=== PATIENT | female | born 1950 | race Caucasian/White ===

== ENCOUNTER 2019-04-18 13:30 | Inpatient (IN) | payer MEDICARE ==
[~2019-04-18] VITALS: Ht 172.7 cm; Wt 100.6 kg
[~2019-04-18 13:30] MED LIST: ACET500 PO; ALPR1 PO; ANASTROZOLE MT; ASCO500 PO; ATOR80 PO; BENADRYL25 MG PO; CALCAVITD PO; CALCIUM PO; CETI5 MT; CHOL10002 PO; CRANBERRY250 MG PO; CYAN500 PO; ENOX40I SC; FISH1000 PO; Flomax0.4 MG PO; Hair, Skin & N1 EACH PO; IBUP400 PO; Inderal60 MG PO; LETR2.5 PO; MELO7.5 MT; MELO7.5 PO; MULVITMIND PO; OXYACE5T PO; PRIM250 PO; PRIM50 MT; PROP80ER MT; Percocet 5-3251 EACH PO; RANI150 MT; RANI150 PO; TOCO1000 PO; Zantac150 MG PO; Zofran Odt4 MG SL
--- NOTE | 2019-05-02 07:13 | NUR ---
History, Chart, Medications and Allergies reviewed before start of procedure. Lungs clear T/O to Auscultation. Patient confirms NPO status and agrees with scheduled surgery. Pre-Op teaching done. Pt verbalizes understanding. Patient reports completing Chlorhexadine shower X2 prior to admission to hospital.
--- NOTE | 2019-05-02 19:39 | NUR ---
SHIFT SUMMARY PT HAS DONE WELL POST OP. WAS DROWSY INITIALLY BUT WORKED VERY WELL WITH BOTH PT/OT. DENIES PAIN BESIDES AN ACHE. VOIDING, EATING AND DRINKING WELL.
[2019-05-03 04:12] LABS: BASOPHILS ABSOLUTE AUTO 0.04 K/mm3 (0.00-0.23); BASOPHILS PERCENT AUTO 0 % (0-2); EOSINOPHILS ABSOLUTE AUTO 0.09 K/mm3 (0.00-0.68); EOSINOPHILS PERCENT AUTO 1 % (0-6); Hematocrit 34.1 % (33.0-51.0); IMMATURE GRAN ABSOLUTE AUTO 0.04 K/mm3 (0.00-0.10); IMMATURE GRAN PERCENT AUTO 0 % (0-1); LYMPHOCYTES PERCENT AUTO 18 % (21-46); MONOCYTES ABSOLUTE AUTO 0.61 K/mm3 (0.16-1.47); MONOCYTES PERCENT AUTO 7 % (4-13); Mean Corpuscular HGB 31.2 pg (26.0-34.0); Mean Corpuscular HGB Conc 32.3 g/dL (31.5-36.5); Mean Corpuscular Volume 97 fL (80-100); NEUTROPHILS ABSOLUTE AUTO 6.63 K/mm3 (1.96-9.15); NEUTROPHILS PERCENT AUTO 74 % (41-73); Platelet Count 147 K/mm3 (150-400); RDW Coefficient Variation 13.2 % (11.7-14.2); RDW Standard Deviation 46.8 fL (35.1-46.3); Red Blood Cell Count 3.53 M/mm3 (3.80-5.20); White Blood Cell Count 9.01 K/mm3 (4.00-11.30)
[2019-05-03 04:28] LABS: Anion Gap 4 mmol/L (6-16); Blood Urea Nitrogen 12 mg/dL (8-24); Bun/Creatinine Ratio 15.6 (12.0-20.0); CO2, Blood 28 mmol/L (21-32); Calcium, Blood 8.5 mg/dL (8.5-10.1); Chloride, Blood 107 mmol/L (98-108); Creatinine, Blood 0.77 mg/dL (0.40-1.00); Glomerular Filtration Rate >60 (60-); Glucose, Blood 112 mg/dL (70-99); Magnesium, Blood 1.9 mg/dL (1.6-2.4); Potassium, Blood 4.1 mmol/L (3.5-5.5); Sodium, Blood 139 mmol/L (136-145)
--- NOTE | 2019-05-03 07:13 | NUR ---
POD 1 SP R [place]. PT VSS T/O NIGHT; DRESSINGS CDI. PT REP PAIN MINIMAL, MGD W/SCHEDULED TYLENOL AND TORADOL. PT DID REQ 1 OXYCODONE THIS AM. PT UP OOB W/FWW+SBA, JAIME WELL. PT JAIME REG PO IS VOIDING URINE W/O DIFFICULTY. REP GIVEN TO DAY RN.
[2019-05-03] MEDS ORDERED: ASPI325EC PO (12:37)
[2019-05-03] MEDS ORDERED: OXYC5 PO (12:38)
--- NOTE | 2019-05-03 14:23 | NUR ---
DISCHARGE PT HAS CLEARED THERAPY, PAIN WELL CONTROLLED, EATING, DRINKING, AND VOIDING WELL. SCRIPT GIVEN, DRSGS GIVEN.
== END 2019-05-03 14:27 | disposition home or self-care (01) | DRG 470 ==
LOC: SURS 05-02 06:04 → PRE IP 05-02 07:30 → SURS 05-02 11:12
PROVIDERS: ADMIT Orthopaedic Surgery
PROC: 0SR904A Replacement of Right Hip Joint with Ceramic on Polyethylene Synthetic Substitute, Uncemented, Open Approach (ICD-10-PCS; principal; 2019-05-02 07:30)
DX: M16.11 Unilateral primary osteoarthritis, right hip (principal); E78.5 Hyperlipidemia, unspecified; Z87.891 Personal history of nicotine dependence
CPT/HCPCS: 36415; 72170; 80048; 83735; 85025; 88300; 97110; 97116; 97162; 97166; 97530; 97535; C1713; C1776; J0171; J0690; J0735; J1100; J1885; J2250; J2405; J2704; J2710; J2795; J3010; J3370; J7120

== ENCOUNTER 2020-03-30 11:06 | Inpatient (IN) | payer MEDICARE ==
[~2020-03-30] VITALS: Ht 180.3 cm; Wt 102.5 kg
[~2020-03-30 11:06] MED LIST changes: +ASPI325EC PO; -Inderal60 MG PO; +OXYC5 PO; +PROP60 PO; +VITAMIN D31000 UNI1 PO
[2020-03-30 12:00] LABS: Hematocrit 40.2 % (33.0-51.0); Mean Corpuscular HGB 29.7 pg (26.0-34.0); Mean Corpuscular HGB Conc 32.3 g/dL (31.5-36.5); Mean Corpuscular Volume 92 fL (80-100); Mean Platelet Volume 10.4 fL (9.1-12.4); Platelet Count 174 K/mm3 (150-400); RDW Coefficient Variation 13.2 % (11.7-14.2); RDW Standard Deviation 45.1 fL (35.1-46.3); Red Blood Cell Count 4.37 M/mm3 (3.80-5.20); White Blood Cell Count 10.05 K/mm3 (4.00-11.30)
[2020-03-30 12:16] LABS: Alanine Aminotransfer (ALT/SGP 18 U/L (12-78); Albumin, Blood 2.8 g/dL (3.4-5.0); Albumin/Globulin Ratio 0.7 (0.8-1.8); Alk Phos 87 U/L (50-136); Anion Gap 8 mmol/L (6-16); Aspartate Aminotrans (AST/SGOT 19 U/L (12-37); Blood Urea Nitrogen 12 mg/dL (8-24); Bun/Creatinine Ratio 15.6 (12.0-20.0); CO2, Blood 23 mmol/L (21-32); Calcium, Blood 8.6 mg/dL (8.5-10.1); Chloride, Blood 102 mmol/L (98-108); Creatinine, Blood 0.77 mg/dL (0.40-1.00); Globulin, Blood 4.2 g/dL (2.2-4.0); Glomerular Filtration Rate >60 (60-); Glucose, Blood 118 mg/dL (70-99); Potassium, Blood 3.9 mmol/L (3.5-5.5); Sodium, Blood 133 mmol/L (136-145)
[2020-03-30 12:33] LABS: BAND PERCENT MAN 33 % (0-8); BASOPHILS PERCENT MAN 0 % (0-2); EOSINOPHILS PERCENT MAN 0 % (0-6); LYMPHOCYTES PERCENT MAN 15 % (21-46); MONOCYTES PERCENT MAN 15 % (4-13); NEUTROPHILS ABSOLUTE MAN 7.03 K/mm3 (1.96-9.15); SEG NEUTROPHILS PERCENT MAN 37 % (41-73); TOTAL CELLS COUNTED 100
[2020-03-30 13:38] LABS: Adenovirus F 40/41 Not Detected (NOT DETECT); Astrovirus Not Detected (NOT DETECT); Campylobacter Sp Not Detected (NOT DETECT); Cryptosporidium Not Detected (NOT DETECT); Cyclospora Cayetanensis Not Detected (NOT DETECT); E. Coli O157 Not Detected (NOT DETECT); Entamoeba Histolytica Not Detected (NOT DETECT); Enteroaggregative E. coli-EAEC Not Detected (NOT DETECT); Enteropathogenic E. coli-EPEC Not Detected (NOT DETECT); Enterotoxigenic E. coli-ETEC Not Detected (NOT DETECT); Giardia Lamblia Not Detected (NOT DETECT); Norovirus GI/GII Not Detected (NOT DETECT); Plesiomonas Shigelloides Not Detected (NOT DETECT); Rotavirus A Not Detected (NOT DETECT); Salmonella Sp Not Detected (NOT DETECT); Sapovirus Not Detected (NOT DETECT); Shiga Toxin-prod E. coli-STEC Not Detected (NOT DETECT); Shigella/Enteroin E. coli-EIEC Not Detected (NOT DETECT); Vibrio Cholerae Not Detected (NOT DETECT); Vibrio Sp Not Detected (NOT DETECT); Yersinia Enterocolitica Not Detected (NOT DETECT)
[2020-03-30] MEDS ORDERED: OYSTER SHELL 51 EACH PO (14:51)
[2020-03-30] MEDS ORDERED: [UNRECOGNIZED DRUG - OTHER] PO (17:03)
[2020-03-30] MEDS ORDERED: ACET325 PO (17:04)
[2020-03-30] MEDS ORDERED: HAIR, SKIN A66.7 MC1 PO (17:05)
--- NOTE | 2020-03-30 20:20 | NUR ---
SHIFT SUMMARY: PT ARRIVED FROM ED AT 1655. A&O X 4, PLEASANT AND COOPERATIVE.C/O MILD ABD DISCOMFORT. LBM TODAY, HAVING INTERMITTENT BOWEL INCONTINENCE, WHICH IS NOT NORMAL FOR HER. SKIN INTACT. EDUCATED ABOUT CALL LIGHT, UNIT ROUTINE, AND CONTACT PRECAUTIONS; VERBALIZED UNDERSTANDING. PLAN IS PO VANOMYCIN UNTIL DIARRHEA RESOLVES.
[2020-03-31 04:52] LABS: Hematocrit 36.9 % (33.0-51.0); Hemoglobin 11.8 g/dL (11.5-16.0); Mean Corpuscular Volume 94 fL (80-100); Mean Platelet Volume 10.2 fL (9.1-12.4); Platelet Count 149 K/mm3 (150-400); RDW Coefficient Variation 13.4 % (11.7-14.2); RDW Standard Deviation 46.2 fL (35.1-46.3); Red Blood Cell Count 3.93 M/mm3 (3.80-5.20); White Blood Cell Count 8.33 K/mm3 (4.00-11.30)
[2020-03-31 05:11] LABS: Alanine Aminotransfer (ALT/SGP 16 U/L (12-78); Albumin, Blood 2.3 g/dL (3.4-5.0); Albumin/Globulin Ratio 0.6 (0.8-1.8); Alk Phos 70 U/L (50-136); Anion Gap 4 mmol/L (6-16); Aspartate Aminotrans (AST/SGOT 13 U/L (12-37); Bilirubin, Total 0.8 mg/dL (0.1-1.0); Blood Urea Nitrogen 13 mg/dL (8-24); Bun/Creatinine Ratio 16.3 (12.0-20.0); CO2, Blood 27 mmol/L (21-32); Calcium, Blood 8.2 mg/dL (8.5-10.1); Chloride, Blood 105 mmol/L (98-108); Globulin, Blood 3.7 g/dL (2.2-4.0); Glomerular Filtration Rate >60 (60-); Glucose, Blood 113 mg/dL (70-99); Magnesium, Blood 1.9 mg/dL (1.6-2.4); Potassium, Blood 4.2 mmol/L (3.5-5.5); Sodium, Blood 136 mmol/L (136-145)
--- NOTE | 2020-03-31 05:16 | NUR ---
MATERIALS SPECIALIST SUMMARY PT AAOX4 AND PLEASANT. INDEPENDENT TO BATHROOM. PT HAS HAD MULTIPLE WATERY STOOLS TONIGHT. CONTINUES WITH PO VANCOMYCIN Q6H. PT DID HAVE A LOW GRADE TEMP OF 99.8 ALONG WITH SOME CHILLS AT ONE POINT TONIGHT. GIVEN TYLENOL AND LAST TEMP NOTED TO BE 98 DEGREES. VSS, WILL CONTINUE TO MONITOR.
[2020-03-31 06:48] LABS: BAND PERCENT MAN 32 % (0-8); BASOPHILS PERCENT MAN 0 % (0-2); EOSINOPHILS ABSOLUTE MAN 0.33 K/mm3 (0.00-0.68); EOSINOPHILS PERCENT MAN 4 % (0-6); LYMPHOCYTES ABSOLUTE MAN 0.99 K/mm3 (0.84-5.20); LYMPHOCYTES PERCENT MAN 12 % (21-46); METAMYELOCYTE ABSOLUTE MAN 0.08 K/mm3 (0.00-0.00); METAMYELOCYTE PERCENT MAN 1 % (0-0); MONOCYTES ABSOLUTE MAN 0.58 K/mm3 (0.16-1.47); MONOCYTES PERCENT MAN 7 % (4-13); NEUTROPHILS ABSOLUTE MAN 6.33 K/mm3 (1.96-9.15); SEG NEUTROPHILS PERCENT MAN 44 % (41-73); TOTAL CELLS COUNTED 100
--- NOTE | 2020-03-31 17:40 | NUR ---
SHIFT SUMMARY: PT A&O X4 AND INDEPENDENT IN ROOM. SHE REPORTED 3/10 PAIN IN HER ABD WHICH WAS DESCRIBED CRAMPING AND WAS REPORTED A TOLERABLE LEVEL. SHE IS CONTINENT AND HAS HAD MULTIPLE LOOSE STOOLS TODAY. VSS. NO NAUSEA REPORTED. WILL CONTINUE TO MONITOR PT UNTIL REPORT GIVEN TO NIGHT RN.
--- NOTE | 2020-04-01 05:06 | NUR ---
CLIENT TECHNOLOGIES SPECIALIST SUMMARY PT CONTINUES TO HAVE LOOSE STOOL BUT THE FREQUENCY HAS SLOWED. PT ALSO REPORTS A DECREASE IN ABD CRAMPING AND STATES IT ONLY OCCURS RIGHT AFTER SHE HAS A BM. SHE HAS RESTED THROUGH THE NIGHT. VSS, WILL CONTINUE TO MONITOR.
[2020-04-01 05:43] LABS: Hemoglobin 11.3 g/dL (11.5-16.0); Mean Corpuscular HGB 30.3 pg (26.0-34.0); Mean Corpuscular HGB Conc 32.3 g/dL (31.5-36.5); Mean Corpuscular Volume 94 fL (80-100); Mean Platelet Volume 10.2 fL (9.1-12.4); Platelet Count 167 K/mm3 (150-400); RDW Coefficient Variation 13.5 % (11.7-14.2); RDW Standard Deviation 46.4 fL (35.1-46.3); Red Blood Cell Count 3.73 M/mm3 (3.80-5.20); White Blood Cell Count 5.75 K/mm3 (4.00-11.30)
[2020-04-01 06:38] LABS: BAND PERCENT MAN 19 % (0-8); BASOPHILS PERCENT MAN 0 % (0-2); EOSINOPHILS ABSOLUTE MAN 0.51 K/mm3 (0.00-0.68); EOSINOPHILS PERCENT MAN 9 % (0-6); LYMPHOCYTES ABSOLUTE MAN 1.49 K/mm3 (0.84-5.20); LYMPHOCYTES PERCENT MAN 26 % (21-46); METAMYELOCYTE ABSOLUTE MAN 0.05 K/mm3 (0.00-0.00); METAMYELOCYTE PERCENT MAN 1 % (0-0); MONOCYTES ABSOLUTE MAN 0.63 K/mm3 (0.16-1.47); MONOCYTES PERCENT MAN 11 % (4-13); MYELOCYTE ABSOLUTE MAN 0.05 K/mm3 (0.00-0.00); MYELOCYTE PERCENT MAN 1 % (0-0); NEUTROPHILS ABSOLUTE MAN 2.99 K/mm3 (1.96-9.15); SEG NEUTROPHILS PERCENT MAN 33 % (41-73); TOTAL CELLS COUNTED 100
[2020-04-02 04:45] LABS: BASOPHILS ABSOLUTE AUTO 0.05 K/mm3 (0.00-0.23); BASOPHILS PERCENT AUTO 1 % (0-2); Hemoglobin 11.5 g/dL (11.5-16.0); LYMPHOCYTES ABSOLUTE AUTO 1.66 K/mm3 (0.84-5.20); LYMPHOCYTES PERCENT AUTO 29 % (21-46); MONOCYTES ABSOLUTE AUTO 0.99 K/mm3 (0.16-1.47); MONOCYTES PERCENT AUTO 17 % (4-13); Mean Corpuscular HGB 29.6 pg (26.0-34.0); Mean Corpuscular HGB Conc 31.9 g/dL (31.5-36.5); Mean Corpuscular Volume 93 fL (80-100); Mean Platelet Volume 10.1 fL (9.1-12.4); Platelet Count 187 K/mm3 (150-400); RDW Coefficient Variation 13.6 % (11.7-14.2); RDW Standard Deviation 45.9 fL (35.1-46.3); Red Blood Cell Count 3.88 M/mm3 (3.80-5.20); White Blood Cell Count 5.68 K/mm3 (4.00-11.30)
[2020-04-02 04:50] LABS: EOSINOPHILS ABSOLUTE AUTO 0.35 K/mm3 (0.00-0.68); EOSINOPHILS PERCENT AUTO 6 % (0-6); IMMATURE GRAN ABSOLUTE AUTO 0.14 K/mm3 (0.00-0.10); IMMATURE GRAN PERCENT AUTO 3 % (0-1); NEUTROPHILS ABSOLUTE AUTO 2.49 K/mm3 (1.96-9.15); NEUTROPHILS PERCENT AUTO 44 % (41-73)
[2020-04-02 05:35] LABS: BAND PERCENT MAN 13 % (0-8); BASOPHILS ABSOLUTE MAN 0.05 K/mm3 (0.00-0.23); BASOPHILS PERCENT MAN 1 % (0-2); EOSINOPHILS ABSOLUTE MAN 0.34 K/mm3 (0.00-0.68); EOSINOPHILS PERCENT MAN 6 % (0-6); LYMPHOCYTES ABSOLUTE MAN 1.87 K/mm3 (0.84-5.20); LYMPHOCYTES PERCENT MAN 33 % (21-46); METAMYELOCYTE ABSOLUTE MAN 0.05 K/mm3 (0.00-0.00); METAMYELOCYTE PERCENT MAN 1 % (0-0); MONOCYTES ABSOLUTE MAN 0.62 K/mm3 (0.16-1.47); MONOCYTES PERCENT MAN 11 % (4-13); MYELOCYTE ABSOLUTE MAN 0.11 K/mm3 (0.00-0.00); MYELOCYTE PERCENT MAN 2 % (0-0); NEUTROPHILS ABSOLUTE MAN 2.61 K/mm3 (1.96-9.15); SEG NEUTROPHILS PERCENT MAN 33 % (41-73); TOTAL CELLS COUNTED 100
--- NOTE | 2020-04-02 06:02 | NUR ---
SHIFT SUMMARY PT IS A 70 Y/O FEMALE, ADMITTED FOR C-DIFF. SHE IS A&O X 4, INDEPENDENT IN THE ROOM. PT WAS MEDICATED X1 FOR STOMACH CRAMPS WITH SIMETHICONE. NO OTHER COMPLAINTS OF PAIN, NAUSEA OR SOB. PT DOES REPORT DIARRHEA APPEARS TO BE SLOWING, WITH 3 REPORTED BMS DURING THE NIGHT. VITAL SIGNS STABLE. NO ACUTE CHANGES IN PT CONDITION NOTED. WILL CONTINUE TO MONITOR AND TREAT PER EMAR UNTIL HAND OFF TO DAY SHIFT RN.
--- NOTE | 2020-04-02 14:40 | NUR ---
SHIFT SUMMARY PT AWAKE AT START OF SHIFT, UP INDEPENDENTLY TO BTHRM WITH DIARRHEA. C-DIFF COLITIS NOT IMPROVING FAST PT WOULD LIKE. PT REPORTED SOME IMPROVEMENT A COUPLE OF DAYS AGO, BUT NOT MUCH SINCE. PT HAVING QUESTIONS REGARDING DURATION OF DIARRHEA AND EXPOSURE TO GRANDKIDS WHEN SHE GOES HOME. PT TO STAY ANOTHER DAY OR TWO D/T SEVERITY OF C-DIFF COLITIS. NO C/O PAIN TO PRESENT TODAY. PASSING FLATUS, BUT "NOT BUILDING UP". A&O, PLEASANT AND CO-OP WITH CARE. ABLE TO SHOWER SELF; SET UP BY CONTACT CENTER ASSISTANT. DENIES FURTHER NEEDS TO PRESENT. CALL LT IN REACH.
--- NOTE | 2020-04-02 22:48 | NUR ---
1945 PT RESTING BEDSIDE CHAIR WATCHING TV; DENIES PAIN OR NAUSEA.
--- NOTE | 2020-04-03 04:11 | NUR ---
SHIFT SUMMARY: 70 Y/O FEMALE RESTED COMFORTABLY IN BED ALL SHIFT; DENIES LOOSE STOOLS ALL SHIFT; DENIES PAIN OR NAUSEA; PT ABLE TO AMBULATE TO BATHROOM AND BACK WITHOUT ISSUE; ALERT AND ORIENTED X 4; BED LOW POSITION WITH CALL LIGHT AT SIDE.
[2020-04-03 05:19] LABS: Hematocrit 37.7 % (33.0-51.0); Hemoglobin 12.1 g/dL (11.5-16.0); Mean Corpuscular HGB 29.7 pg (26.0-34.0); Mean Corpuscular HGB Conc 32.1 g/dL (31.5-36.5); Mean Corpuscular Volume 93 fL (80-100); Mean Platelet Volume 9.6 fL (9.1-12.4); Platelet Count 206 K/mm3 (150-400); RDW Coefficient Variation 13.5 % (11.7-14.2); RDW Standard Deviation 46.1 fL (35.1-46.3); Red Blood Cell Count 4.07 M/mm3 (3.80-5.20); White Blood Cell Count 5.41 K/mm3 (4.00-11.30)
[2020-04-03 05:45] LABS: Anion Gap 7 mmol/L (6-16); Blood Urea Nitrogen 10 mg/dL (8-24); Bun/Creatinine Ratio 14.8 (12.0-20.0); CO2, Blood 27 mmol/L (21-32); Calcium, Blood 8.2 mg/dL (8.5-10.1); Chloride, Blood 106 mmol/L (98-108); Creatinine, Blood 0.68 mg/dL (0.40-1.00); Glomerular Filtration Rate >60 (60-); Glucose, Blood 102 mg/dL (70-99); Potassium, Blood 3.9 mmol/L (3.5-5.5); Sodium, Blood 140 mmol/L (136-145)
[2020-04-03 05:56] LABS: BAND PERCENT MAN 9 % (0-8); BASOPHILS ABSOLUTE MAN 0.05 K/mm3 (0.00-0.23); BASOPHILS PERCENT MAN 1 % (0-2); EOSINOPHILS ABSOLUTE MAN 0.32 K/mm3 (0.00-0.68); EOSINOPHILS PERCENT MAN 6 % (0-6); LYMPHOCYTES ABSOLUTE MAN 1.56 K/mm3 (0.84-5.20); LYMPHOCYTES PERCENT MAN 29 % (21-46); METAMYELOCYTE PERCENT MAN 2 % (0-0); MONOCYTES ABSOLUTE MAN 0.54 K/mm3 (0.16-1.47); MONOCYTES PERCENT MAN 10 % (4-13); NEUTROPHILS ABSOLUTE MAN 2.81 K/mm3 (1.96-9.15); SEG NEUTROPHILS PERCENT MAN 43 % (41-73); TOTAL CELLS COUNTED 100
--- NOTE | 2020-04-03 17:20 | NUR ---
SHIFT SUMMARY PT ALERT AND ORIENTED THROUGHOUT THIS SHIFT. PT STATES NO BMS SINCE THIS AM. PT STATED SHE FELT OVERWHELMED THIS AM. I SAT IN THE ROOM AND LISTENED TO THE PATIENT SHE EXPRESSED HER FEELINGS. PT STATES SHE IS FEELING BETTER THIS AFTERNOON. PT HYPERTENSIVE THIS AM. NOTIFIED, SCHEDULED BP MEDICATIONS ADMINISTERED. SYSTOLIC BP IN THE 140S THIS AFTERNOON. PT SITTING UP IN BED MUCH OF THIS SHIFT, THEN UP IN CHAIR THIS AFTERNOON. PT STATES NO ADDITIONAL NEEDS AT THIS TIME.
--- NOTE | 2020-04-03 21:43 | NUR ---
70 Y/O FEMALE RESTING COMFORTABLY IN BED; CHEERFUL; DENIES PAIN OR NAUSEA.
--- NOTE | 2020-04-04 04:27 | NUR ---
SHIFT SUMMARY: 70 Y/O FEMALE RESTED COMFORTABLY ALL SHIFT; PT HAD ZERO EPISODES DIARRHEA AND TOLERATED VANCOMYCIN MG PO WELL; PT DENIES PAIN OR NAUSEA; PT EAGER TO RETURN HOME SOON; PT UP INDEPENDENTLY IN ROOM; BED LOW POSITION WITH CALL LIGHT AT SIDE.
[2020-04-04] MEDS ORDERED: Florastor250 MG PO (12:56)
[2020-04-04] MEDS ORDERED: VANCOCIN HCL125 MG PO (12:56)
--- NOTE | 2020-04-04 13:47 | NUR ---
DISCHARGE NOTE PT DISCHARGED TO HOME. PT ALERT AND ORIENTED THROUGHOUT THIS SHIFT. PT REPORTS NORMAL STOOLS THIS SHIFT. PT INDEPENDENT IN THE ROOM. PT UP IN CHAIR MUCH OF THIS SHIFT. IV REMOVED PRIOR TO DISCHARGE. PT PROVIDED WITH DISCHARGE INSTRUCTIONS AND MEDICATION LIST. PT STATES NO ADDITIONAL QUESTIONS AT THIS TIME. PT'S DAUGHTER PROVIDING TRANSPORTATION HOME. PT TO VEHICLE BY [facility].
== END 2020-04-04 13:40 | disposition home or self-care (01) | DRG 872 ==
LOC: ER 11:06 → MEDS 16:01 → ENPENDDIS 04-04 11:47 → MEDS 04-04 13:40
PROVIDERS: Emergency Medicine; Hospitalist; Nurse Practitioner Acute Care; Physician Assistant; ADMIT Internal Medicine
DX: A41.89 Other specified sepsis (principal); A04.72 Enterocolitis due to Clostridium difficile, not specified as recurrent; E87.1 Hypo-osmolality and hyponatremia; Z90.11 Acquired absence of right breast and nipple; Z87.891 Personal history of nicotine dependence; Z79.82 Long term (current) use of aspirin; I10 Essential (primary) hypertension; E66.9 Obesity, unspecified; G25.0 Essential tremor; D72.825 Bandemia; Z68.30 Body mass index [BMI] 30.0-30.9, adult
CPT/HCPCS: 0097U; 36415; 74177; 80048; 80053; 82248; 83605; 83690; 83735; 85025; 87040; 87324; 93005; 93010; 96374-59; 96375; 99285-25; A9270; J2405; J3370; J7030; J7120; Q9967

== ENCOUNTER → 2021-08-26 | Outpatient (CLI) | payer MEDICARE ==
[~2021-08-26] MED LIST changes: +ACET325 PO; +Florastor250 MG PO; +HAIR, SKIN A66.7 MC1 PO; +OYSTER SHELL 51 EACH PO; +VANCOCIN HCL125 MG PO; +[UNRECOGNIZED DRUG - OTHER] PO
== END ==
LOC: LAB SHORT 14:47
DX: R31.9 Hematuria, unspecified (principal)
CPT/HCPCS: 87086

== ENCOUNTER 2021-09-14 12:25 | Day surgery (SDC) | payer MEDICARE ==
[~2021-09-14] VITALS: Ht 175.3 cm; Wt 98.2 kg
[2021-09-14] MEDS ORDERED: ACIDOPHILUS1 EAC3 PO (13:08)
[2021-09-14] MEDS ORDERED: GLUCHON PO (13:08)
== END 2021-09-14 15:43 | disposition home or self-care (01) ==
LOC: ORSCSDS 12:25
PROVIDERS: Orthopaedic Surgery
PROC: 01N50ZZ Release Median Nerve, Open Approach (ICD-10-PCS; principal; 2021-09-14 13:35)
PROC: 0LN70ZZ Release Right Hand Tendon, Open Approach (ICD-10-PCS; principal; 2021-09-14 13:35)
DX: G56.01 Carpal tunnel syndrome, right upper limb (principal); M65.351 Trigger finger, right little finger; M65.331 Trigger finger, right middle finger; N18.9 Chronic kidney disease, unspecified; E66.9 Obesity, unspecified; Z68.32 Body mass index [BMI] 32.0-32.9, adult; Z79.82 Long term (current) use of aspirin; Z79.899 Other long term (current) drug therapy
CPT/HCPCS: J0690; J1100; J1885; J2250; J2405; J2704; J3010; J7120

== ENCOUNTER → 2021-10-23 | Outpatient (CLI) | payer MEDICARE ==
[~2021-10-23] MED LIST changes: +ACIDOPHILUS1 EAC3 PO; +GLUCHON PO
[2021-10-24 08:09] LABS: BASO (ABSOLUTE) 0.1 x10E3/uL (0.0-0.2); BASOS 1 % (Not Estab.); EOS 3 % (Not Estab.); EOS (ABSOLUTE) 0.2 x10E3/uL (0.0-0.4); HEMATOCRIT 37.7 % (34.0-46.6); HEMOGLOBIN 11.9 g/dL (11.1-15.9); IMMATURE GRANS (ABS) 0.1 x10E3/uL (0.0-0.1); IMMATURE GRANULOCYTES 1 % (Not Estab.); LYMPHS 21 % (Not Estab.); LYMPHS (ABSOLUTE) 1.8 x10E3/uL (0.7-3.1); MCH 27.8 pg (26.6-33.0); MCHC 31.6 g/dL (31.5-35.7); MCV 88 fL (79-97); MONOCYTES 8 % (Not Estab.); MONOCYTES(ABSOLUTE) 0.6 x10E3/uL (0.1-0.9); NEUTROPHILS 66 % (Not Estab.); NEUTROPHILS (ABSOLUTE) 5.5 x10E3/uL (1.4-7.0); PLATELETS 244 x10E3/uL (150-450); RBC 4.28 x10E6/uL (3.77-5.28); RDW 13.5 % (11.7-15.4); WBC 8.2 x10E3/uL (3.4-10.8)
[2021-10-24 09:10] LABS: A/G RATIO 1.3 (1.2-2.2); ALKALINE PHOSPHATASE, S 114 IU/L (44-121); ALT (SGPT) 14 IU/L (0-32); AST (SGOT) 16 IU/L (0-40); BILIRUBIN, TOTAL 0.4 mg/dL (0.0-1.2); BUN 20 mg/dL (8-27); BUN/CREATININE RATIO 34 (12-28); CARBON DIOXIDE, TOTAL 25 mmol/L (20-29); CHLORIDE, SERUM 104 mmol/L (96-106); CHOLESTEROL, TOTAL 126 mg/dL (100-199); CREATININE, SERUM 0.59 mg/dL (0.57-1.00); EGFR IF AFRICN AM 107 (>59); EGFR IF NONAFRICN AM 93 (>59); GLUCOSE, SERUM 101 mg/dL (65-99); HDL CHOLESTEROL 47 mg/dL (>39); LDL CHOLESTEROL CALC 58 mg/dL (0-99); POTASSIUM, SERUM 4.8 mmol/L (3.5-5.2); PROTEIN, TOTAL, SERUM 6.8 g/dL (6.0-8.5); SODIUM, SERUM 140 mmol/L (134-144); TRIGLYCERIDES 115 mg/dL (0-149); VLDL CHOLESTEROL CAL 21 mg/dL (5-40)
== END ==
LOC: LAB SHORT 14:46
PROVIDERS: Physician Assistant
DX: E78.5 Hyperlipidemia, unspecified (principal)
CPT/HCPCS: 80053; 80061; 85025

== ENCOUNTER 2021-12-14 12:02 | Day surgery (SDC) | payer MEDICARE ==
[~2021-12-14] VITALS: Ht 175.3 cm; Wt 100.0 kg
--- NOTE | 2021-12-14 12:55 | NUR ---
12/14/21 1255 Yola Cason 1ST AND SECOND JUNE BLOCK IN [place] HAND UNSUCCESSFUL.
--- NOTE | 2021-12-14 13:34 | NUR ---
12/14/21 1334 Steven Blancas BLOCK COMPLETE AT [id number] BY DR MUELLER. SITE CHECK COMPLETE. VSS.
== END 2021-12-14 14:24 | disposition home or self-care (01) ==
LOC: ORSCSDS 12:02
PROVIDERS: Orthopaedic Surgery
PROC: 01N50ZZ Release Median Nerve, Open Approach (ICD-10-PCS; principal; 2021-12-14 13:15)
DX: G56.02 Carpal tunnel syndrome, left upper limb (principal); E78.5 Hyperlipidemia, unspecified; F41.9 Anxiety disorder, unspecified; I48.0 Paroxysmal atrial fibrillation; Z87.891 Personal history of nicotine dependence; E66.9 Obesity, unspecified; Z68.32 Body mass index [BMI] 32.0-32.9, adult; Z79.82 Long term (current) use of aspirin; Z79.899 Other long term (current) drug therapy
CPT/HCPCS: J0690; J2250; J2405; J2704; J3010; J7120

== ENCOUNTER 2024-07-12 10:38 | Day surgery (SDC) | payer MEDICARE, OTHER ==
[~2024-07-12] VITALS: Ht 177.8 cm; Wt 102.8 kg
[~2024-07-12 10:38] MED LIST changes: +Balanced Salt Epinephrine Irrigation Solution 500 mL IR SCH; +Lidocaine HCl/Pf 1% 5 ML VIAL XX SCH; +Moxifloxacin HCL 0.5 MG/0.1 ML 0.4MLSYR RIGHTEYE SCH; +NS 500 ML IV ONE; +PHENYLEPHRINE\\TROPICAMIDE\\TETRACAINE OPHTHALMIC DILATING SOLN RIGHTEYE PRN; +Povidone-Iodine 450 DROP/30 ML Solution ONE; +Povidone-Iodine 450 DROP/30 ML Solution RIGHTEYE SCH; +Tetracaine HCl/Pf 0.5% Opth Soln 4 ml ONE; +Triamcinolone Inj Susp 40 MG / ML 1ML Vial INJ SCH; +Triamcinolone Inj Susp 40 MG / ML 1ML Vial ONE
[2024-07-12] MEDS ORDERED: Aspir 8181 MG PO (11:22)
[2024-07-12] MEDS ORDERED: Diazepam 5 MG Tab ONE (11:24)
[2024-07-12 12:31] VITALS: BP 141/71
--- NOTE | 2024-07-12 12:37 | NUR ---
07/12/[address] AT BEDSIDE
== END 2024-07-12 12:50 | disposition home or self-care (01) ==
LOC: ORSCSDS 10:38
PROVIDERS: Ophthalmology
PROC: 08RJ3JZ Replacement of Right Lens with Synthetic Substitute, Percutaneous Approach (ICD-10-PCS; principal; 2024-07-12 12:00)
DX: H25.811 Combined forms of age-related cataract, right eye (principal); Z96.1 Presence of intraocular lens; H21.81 Floppy iris syndrome; F41.9 Anxiety disorder, unspecified; E78.5 Hyperlipidemia, unspecified; E66.9 Obesity, unspecified; Z68.32 Body mass index [BMI] 32.0-32.9, adult; Z87.891 Personal history of nicotine dependence; Z79.82 Long term (current) use of aspirin; Z79.899 Other long term (current) drug therapy
CPT/HCPCS: A9270; J3301; J7040; V2632

== ENCOUNTER → 2025-01-28 | Outpatient (CLI) | payer MEDICARE, OTHER ==
[~2025-01-28] MED LIST changes: +Aspir 8181 MG PO; -Balanced Salt Epinephrine Irrigation Solution 500 mL IR SCH; -Lidocaine HCl/Pf 1% 5 ML VIAL XX SCH; -Moxifloxacin HCL 0.5 MG/0.1 ML 0.4MLSYR RIGHTEYE SCH; -NS 500 ML IV ONE; -PHENYLEPHRINE\\TROPICAMIDE\\TETRACAINE OPHTHALMIC DILATING SOLN RIGHTEYE PRN; -Povidone-Iodine 450 DROP/30 ML Solution ONE; -Povidone-Iodine 450 DROP/30 ML Solution RIGHTEYE SCH; -Tetracaine HCl/Pf 0.5% Opth Soln 4 ml ONE; -Triamcinolone Inj Susp 40 MG / ML 1ML Vial INJ SCH; -Triamcinolone Inj Susp 40 MG / ML 1ML Vial ONE
== END | disposition home or self-care (01) ==
LOC: LAB 17:53 → LAB SHORT 17:53
DX: R31.9 Hematuria, unspecified (principal)
CPT/HCPCS: 87086

== ENCOUNTER → 2025-09-04 | Outpatient (CLI) | payer MEDICARE, OTHER | LOC: LAB SHORT 16:25 → LAB 16:25 | DX: N39.0 Urinary tract infection, site not specified (principal); A49.9 Bacterial infection, unspecified; R10.A2 Flank pain, left side; R50.9 Fever, unspecified | CPT/HCPCS: 80053; 85025; 87086 ==

== ENCOUNTER → 2025-09-04 | Outpatient (CLI) | payer MEDICARE, OTHER ==
[2025-09-04 13:43] LABS: BASOPHILS ABSOLUTE AUTO 0.04 K/mm3 (0.00-0.23); BASOPHILS PERCENT AUTO 1 % (0-2); EOSINOPHILS ABSOLUTE AUTO 0.27 K/mm3 (0.00-0.68); EOSINOPHILS PERCENT AUTO 5 % (0-6); Hematocrit 42.4 % (33.0-51.0); Hemoglobin 14.0 g/dL (11.5-16.0); IMMATURE GRAN ABSOLUTE AUTO 0.02 K/mm3 (0.00-0.10); IMMATURE GRAN PERCENT AUTO 0 % (0-1); LYMPHOCYTES ABSOLUTE AUTO 1.52 K/mm3 (0.84-5.20); LYMPHOCYTES PERCENT AUTO 26 % (21-46); MONOCYTES ABSOLUTE AUTO 0.40 K/mm3 (0.16-1.47); MONOCYTES PERCENT AUTO 7 % (4-13); Mean Corpuscular HGB Conc 33.0 g/dL (31.5-36.5); Mean Corpuscular Volume 93 fL (80-100); NEUTROPHILS ABSOLUTE AUTO 3.52 K/mm3 (1.96-9.15); NEUTROPHILS PERCENT AUTO 61 % (41-73); NRBC ABSOLUTE 0.00 K/mm3 (0.00-0.02); NRBC Auto 0.0 /100 WBC (0.0-0.2); Platelet Count 184 K/mm3 (150-400); RDW Coefficient Variation 13.6 % (11.7-14.2); RDW Standard Deviation 46.1 fL (35.1-46.3)
[2025-09-04 13:53] LABS: Alanine Aminotransfer (ALT/SGP 28.0 U/L (12-78); Albumin, Blood 3.6 g/dL (3.4-5.0); Albumin/Globulin Ratio 0.9 (0.8-1.8); Anion Gap 14.0 mmol/L (6-16); Aspartate Aminotrans (AST/SGOT 29.0 U/L (12-37); Bilirubin, Total 0.8 mg/dL (0.1-1.0); Blood Urea Nitrogen 16.0 mg/dL (8-24); CO2, Blood 26.0 mmol/L (21-32); Calcium, Blood 8.9 mg/dL (8.5-10.1); Chloride, Blood 103.0 mmol/L (98-108); Creatinine, Blood 1.01 mg/dL (0.40-1.00); Globulin, Blood 4.2 g/dL (2.2-4.0); Glucose, Blood 94.0 mg/dL (70-99); Potassium, Blood 4.4 mmol/L (3.5-5.5); Sodium, Blood 139.0 mmol/L (136-145); Total Protein, Blood 7.8 g/dL (6.4-8.2)
== END ==
LOC: LAB 13:34 → LAB SHORT 13:34
PROVIDERS: Family Medicine
DX: R10.A2 Flank pain, left side (principal); R50.9 Fever, unspecified
CPT/HCPCS: 80053; 85025